=== PATIENT | female | born 1965 | race Caucasian/White ===

== ENCOUNTER → 2024-08-02 10:53 | Outpatient (REF) | payer BC, SELFPAY | LOC: HWRAD 10:53 | PROVIDERS: ATTENDING PHYSICIAN Nurse Practitioner; FAMILY PHYSICIAN Family Medicine | DX: E78.2 Mixed hyperlipidemia (principal); Z82.49 Family history of ischemic heart disease and other diseases of the circulatory system | CPT/HCPCS: 75571 ==